=== PATIENT | male | born 1975 | race Caucasian/White ===

== ENCOUNTER → 2018-11-15 09:13 | Outpatient (CLI) | payer OTHER, SELFPAY ==
--- NOTE | 2018-11-15 09:19 | DI.RAD.S_ITS ---
PROCEDURE: XR HAND RT MIN 3V INDICATIONS: right hand pain/swelling-hit door TECHNIQUE: 3 views of the hand(s) acquired. COMPARISON: None. FINDINGS: Bones: Comminuted, mildly displaced intra-articular fracture is present at the base of the fifth metacarpal. Soft tissues: No suspicious soft tissue calcifications. Soft tissue edema is present adjacent to the fifth digit. IMPRESSION: Comminuted intra-articular fifth metacarpal fracture. Dictated by: Miroslava Whatley M.D. on 11/15/2018 at 9:33 Approved by: Miroslava Whatley M.D. on 11/15/2018 at 9:34
== END ==
LOC: DI 09:18
PROVIDERS: Visit Provider Physician Assistant
DX: M79.641 Pain in right hand (principal); S62.316A Displaced fracture of base of fifth metacarpal bone, right hand, initial encounter for closed fracture; W22.8XXA Striking against or struck by other objects, initial encounter
CPT/HCPCS: 73130

== ENCOUNTER 2019-02-27 10:14 | Emergency (ER) | payer SELFPAY ==
[2019-02-27 10:42] VITALS: BP 150/88; PULSE 102; RESP 14; TEMP 36.8; O2SAT 97; BMI 28.1
--- NOTE | 2019-02-27 11:19 | DI.RAD.S_ITS ---
PROCEDURE: XR FINGER LT MIN 2V INDICATIONS: finger pain and laceration, smashed TECHNIQUE: 3 views of the left 4th digit acquired. COMPARISON: None. FINDINGS: Bones: There is a mildly comminuted fracture of the tuft of the 4th distal phalanx. No dislocations. Soft tissues: There is soft tissue swelling of the 4th digit distally. No radiopaque foreign bodies. IMPRESSION: 1. Mildly comminuted fracture of the 4th distal phalanx. Dictated by: Arash Sagastume M.D. on 02/27/2019 at 10:57 Approved by: Arash Sagastume M.D. on 02/27/2019 at 10:59
--- NOTE | 2019-02-27 11:19 | DI.RAD.S_ITS ---
PROCEDURE: XR RIBS LT MIN 3V W CXR1V INDICATIONS: L side ribs pain, s/p fall 2 days ago on ribs TECHNIQUE: 2 views of the left ribs were acquired, along with a single view chest. COMPARISON: None. FINDINGS: Surgical changes and devices: None. Bones and chest wall: No displaced rib fracture identified. No suspicious bony lesions. Overlying soft tissues appear unremarkable. Lungs and pleura: No pleural effusions or pneumothorax. Lungs appear clear. Mediastinum: Mediastinal contours appear normal. Heart size is normal. IMPRESSION: 1. No displaced rib fracture identified. Dictated by: Arash Sagastume M.D. on 02/27/2019 at 10:55 Approved by: Arash Sagastuem M.D. on 02/27/2019 at 10:56
[2019-02-27] MEDS: BACITRACIN OINT 0.9 GM PCKT 1 APPLIC TOP (11:38)
[2019-02-27] MEDS: LIDO 1%/SOD BICARB 8.4% (10ML) 10 ML SYRINGE INJ (11:38)
[2019-02-27] MEDS: TET,DIPH,PERTUSS(ACELL),VAC/PF 0.5 ML SYRINGE IM (11:39)
--- NOTE | 2019-02-27 12:20 | ED_ITS ---
HPI - Fall <SAÚL DaughertyP - Last Filed: 02/28/19 01:24> General Chief Complaint: Fall Stated Complaint: Laceration on left finger from fall Time Seen by Provider: 02/27/19 11:01 Source: patient Mode of arrival: Ambulatory Limitations: no limitations History of Present Illness HPI Narrative: This is a very anxious 43-year-old male, smoker, who presents to ED with severe left 4th digit cut to distal finger 2 days ago after he smashed on metal of door locking parts which is not too clear per patient's description. He states pain is very severe and is causing nausea. Patient denies fever, chills, vomiting, drainage from the wound. Patient also states he had mechanical fall on the same day on to his left chest and has been hurting. He states hurts to cough or movement. Patient denies dyspnea or productive cough. Last tetanus immunization was given in 2008. Related Data Home Medications Medication Instructions Recorded Confirmed cetirizine 10 mg capsule 10 mg PO DAILY 12/24/17 11/15/18 multivitamin 1 tab PO DAILY 12/24/17 11/15/18 Previous Rx's Medication Instructions Recorded fluticasone propionate 1 spray INTRANASAL HS #16 gm 08/04/16 ipratropium 20 mcg-albuterol 100 1 puff INHALATION QID #4 gram 12/24/17 mcg/actuation mist for inhalation cephalexin [Keflex] 500 mg PO Q6H 10 Days #40 cap 02/27/19 Allergies Allergy/AdvReac Type Severity Reaction Status Date / Time No Known Drug Allergies Allergy Verified 02/27/19 10:42 Review of Systems <SAÚL DaughertyP - Last Filed: 02/28/19 01:24> Review of Systems Narrative: General: See HPI HEENT: Denies sinus pain, ear pain, sore throat, difficulty swallowing, dizziness. Respiratory: Denies dyspnea, cough, wheezing, hemoptysis, sputum. Cardiovascular: Left-sided rib pain. Denies chest pain, palpitations, orthopnea, edema. Gastrointestinal: Reports nausea. Denies vomiting, abdominal pain, diarrhea, constipation, melena. : Denies dysuria, frequency, incontinence, hematuria, urinary retention. Musculoskeletal: Denies weakness, joint pain or bony pain. Skin: See HPI Neurologic: Denies weakness, headache, numbness, change in speech, confusion, seizures, incoordination. Psychiatric: No concerning psychosocial issues. 12-point review of systems is negative except for those stated above. Exam <Lazaro BERT Bowser - Last Filed: 02/28/19 01:24> Narrative Exam Narrative: GEN: Alert, oriented x 3, apprehensive and restless. Head: Normal cephalic, atraumatic. No scalp or temporal tenderness, palpable mass or rash. EYES: Pupils are equal, round, and reactive to light and accommodation. Extraocular muscles are intact bilaterally. There is no subconjunctival hemorrhage, exudate and sclera non-icteric. ENT: Bilateral auditory canals and tympanic membranes clear. Hearing grossly i ntact. Nose without bleeding, purulent discharge or deviation. Mucous membrane moist, no mucosal lesion. Throat without erythema, tonsillar hypertrophy or exudate. Uvula in midline, airway patent. Neck: Trachea in midline. No JVD, non-tender without lymphadenopathy. No masses or thyroid megaly. Supple, non-tender and no meningeal signs. CARDIAC: Normal regular rate and rhythm without murmurs, gallops, or rubs. No chest wall tenderness. No peripheral edema, cyanosis or pallor. Capillary refill is less than 2 seconds. RESPIRATORY: Lungs are cleat to auscultate bilaterally. No cough, wheezes, rales, or rhonchi. No stridor, respiratory distress, increase work of breathing, or accessary muscle used. ABD: Left upper abdomen with superficial abrasion and mildly tender to palpate. Abdomen soft and non-distended. No guarding or rebound tenderness to palpate. Bowel sounds are normal in all 4 quadrants. There is no palpable masses or organomegaly. EXT: Reports left 4th distal finger pain to palpate. Full range of motion on affected finger against resistance, no loss of sensation, strength. SKIN: Left 4th distal finger injury very tightly wrapped around Band-Aid, noticed swelling and warmth to touch down to proximal finger. Bilateral hands and lower arm covered with blue ink. BACK: Left posterior rib and side tender to palpate without deformity or crep itance. No flank tenderness. NEUROLOGICAL: Alert and oriented to place, time and person. Sensation and motor function intact bilaterally. No facial droops, dysphasia. PSYCHIATRIC: Patient anxious but was able to redirect. No hallucinations and is not suicidal. Initial Vital Signs Initial Vital Signs: Vital Signs Temperature 98.3 F 02/27/19 10:42 Pulse Rate 102 H 02/27/19 10:42 Respiratory Rate 14 02/27/19 10:42 Blood Pressure 150/88 H 02/27/19 10:42 Pulse Oximetry 97 02/27/19 10:42 <Viridiana Rodgers DO - Last Filed: 02/28/19 07:45> Initial Vital Signs Initial Vital Signs: Vital Signs Temperature 98.3 F 02/27/19 10:42 Pulse Rate 102 H 02/27/19 10:42 Respiratory Rate 14 02/27/19 10:42 Blood Pressure 150/88 H 02/27/19 10:42 Pulse Oximetry 97 02/27/19 10:42 PFSH <BERT Daugherty - Last Filed: 02/28/19 01:24> Surgical History H/O hand surgery (Acute) Social History Smoking Status: Never smoker Social History Smoking Status: Current every day smoker Procedures <BERT Daugherty - Last Filed: 02/28/19 01:24> Nerve Block Nerve Block 1: Time out performed: Yes Local Anesthetic: lidocaine 1% and with bicarb Amount of anesthesia used (mL): 1.5 Side: left Nerve Blocks: digital (Fourth finger) Procedure Successful: Yes Patient Tolerated Procedure: Well Complications: none Orthopedic Splinting/Casting Injury #1: Side: left Upper Extremity Injury Location: finger (Fourth) Upper Extremity Immobilizer: aluminum form splint Post splinting neuro exam: intact Post splinting vascular exam: intact Placed by: Nursing Scores <BERT Daugherty - Last Filed: 02/28/19 01:24> GCS [place] coma scale eye opening: Spontaneous [place] coma scale verbal response: Orientated [place] coma scale motor response: Obey commands [place] coma scale total score: 15 Course <BERT Daugherty - Last Filed: 02/28/19 01:24> Orders Ordered: Discontinued Medications Bacitracin (Bacitracin) 1 applic TOP NOW ONE Stop: 02/27/19 11:20 Last Admin: 02/27/19 11:38 Dose: 1 applic Documented by: DANGELO Cephalexin HCl (Keflex) 500 mg PO NOW ONE Stop: 02/27/19 13:10 Last Admin: 02/27/19 13:17 Dose: 500 mg Documented by: DANGELO Diphtheria/Tetanus/Acell Pertussis (Adacel) 0.5 ml IM .ONCE ONE Stop: 02/27/19 11:22 Last Admin: 02/27/19 11:39 Dose: 0.5 ml Documented by: DANGELO Lidocaine/Sodium Bicarbonate (Buffered Lidocaine 10 Ml Syr) 10 ml INJ NOW ONE Stop: 02/27/19 11:20 Last Admin: 02/27/19 11:38 Dose: 10 ml Documented by: DANGELO Vital Signs Vital signs: Vital Signs - 8 hr 02/27/19 10:42 Temperature 98.3 F Pulse Rate 102 H Respiratory Rate 14 Blood Pressure 150/88 H Pulse Oximetry 97 <Viridiana Rodgers DO - Last Filed: 02/28/19 07:45> Orders Ordered: Discontinued Medications Bacitracin (Bacitracin) 1 applic TOP NOW ONE Stop: 02/27/19 11:20 Last Admin: 02/27/19 11:38 Dose: 1 applic Documented by: DANGELO Cephalexin HCl (Keflex) 500 mg PO NOW ONE Stop: 02/27/19 13:10 Last Admin: 02/27/19 13:17 Dose: 500 mg Documented by: DANGELO Diphtheria/Tetanus/Acell Pertussis (Adacel) 0.5 ml IM .ONCE ONE Stop: 02/27/19 11:22 Last Admin: 02/27/19 11:39 Dose: 0.5 ml Documented by: DANGELO Lidocaine/Sodium Bicarbonate (Buffered Lidocaine 10 Ml Syr) 10 ml INJ NOW ONE Stop: 02/27/19 11:20 Last Admin: 02/27/19 11:38 Dose: 10 ml Documented by: DANGELO Vital Signs Vital signs: Vital Signs - 8 hr 02/27/19 10:42 Temperature 98.3 F Pulse Rate 102 H Respiratory Rate 14 Blood Pressure 150/88 H Pulse Oximetry 97 MDM - Fall <Lazaro BERT Bowser - Last Filed: 02/28/19 01:24> Differential Diagnosis Differential diagnosis: Likely other (Chest contusion, rib fracture, finger laceration, finger fracture, finger contusion) Medical Records Attestation: I reviewed the patient's medical records. Imaging Data XR-Finger LT: Radiologist's impression: [address] [address] XRay Report Signed Patient: Ahmet Chavez LMR#: [id number] : 1975Acct:[id number] Age/Sex: 43 / MDate of Service: 02/27/19 Loc: ED Accession Number: [id number] Procedure: XR finger LT min 2V Ordering Provider: Lazaro BowserP PROCEDURE: XR FINGER LT MIN 2V INDICATIONS: finger pain and laceration, smashed TECHNIQUE: 3 views of the left 4th digit acquired. COMPARISON: None. FINDINGS: Bones: There is a mildly comminuted fracture of the tuft of the 4th distal phalanx. No dislocations. Soft tissues: There is soft tissue swelling of the 4th digit distally. No radiopaque foreign bodies. IMPRESSION: 1. Mildly comminuted fracture of the 4th distal phalanx. Dictated by: Arash Sagastume M.D. on 02/27/2019 at 10:57 Approved by: Arash Sagastume M.D. on 02/27/2019 at 10:59 Chest x-ray: Radiologist's impression: [address] [address] XRay Report Signed Patient: Ahmet Chavez LMR#: [id number] : 1975Acct:[id number] Age/Sex: 43 / MDate of Service: 02/27/19 Loc: ED Accession Number: [id number] Procedure: XR ribs LT min 3V w CXR1V Ordering Provider: Lazaro Bowser [facility] PROCEDURE: XR RIBS LT MIN 3V W CXR1V INDICATIONS: L side ribs pain, s/p fall 2 days ago on ribs TECHNIQUE: 2 views of the left ribs were acquired, along with a single view chest. COMPARISON: None. FINDINGS: Surgical changes and devices: None. Bones and chest wall: No displaced rib fracture identified. No suspicious bony lesions. Overlying soft tissues appear unremarkable. Lungs and pleura: No pleural effusions or pneumothorax. Lungs appear clear. Mediastinum: Mediastinal contours appear normal. Heart size is normal. IMPRESSION: 1. No displaced rib fracture identified. Dictated by: Arash Sagastume M.D. on 02/27/2019 at 10:55 Approved by: Arash Sagastume M.D. on 02/27/2019 at 10:56 [facility] Narrative Medical decision making narrative: This is a 43-year-old gentleman who came in to ED with left 4th distal finger pain and laceration after he injured 2 days ago. He also reports mechanical fall on the left side his ribs and chest on the same day and reports pain with movement and coughing. Chest/rib x-ray was obtained with negative findings of fracture. After very tight Band-Aid dressing was removed from affected finger patient reports improved discomfort. Affected finger was anesthetized by a nerve block. Please see procedural note. Patient is soak affected finger and Hibiclens water for prolonged period. Wound care was done by bacitracin and Xeroform and loose to below gauze. X-ray test shows patient had comminuted fracture of the 4th distal phalanx. Patient was medicated with Keflex 500 mg while in ED and was discharged with remaining 10 day course q.i.d. dose. Patient was updated Tdap today. Aluminum finger splint was applied on affected finger. Patient does not have primary care physician at this time and [facility] phone number has been provided along the walk-in clinic information and along the [facility] contact information for patient to follow up as needed. Patient advised to recheck his wound in couple of days after he started antibiotic medication. Patient agrees with treatment plan and no further questions were expressed and work note for 3 days have been provided. Discharge Plan Departure Patient Disposition: Home Clinical Impression: Pain in rib Finger fracture, left Qualifiers: Encounter type: initial encounter Finger: ring finger Fracture type: closed Phalanx: distal Fracture alignment: nondisplaced Qualified Code(s): S62.665A - Nondisplaced fracture of distal phalanx of left ring finger, initial encounter for closed fracture Discharge Date/Time: 02/27/19 13:58 Instructions: DI for Finger Fracture, DI for Rib Contusion Activity Restrictions/Additional Instructions: You have been diagnosed with [ L side rib contusion from a fall, mild comminuted fracture of the 4th distal finger and swelling, cellulitis ]. What to do: *Take your medications as directed. Please continue to take Keflex 4 times a day for next 10 days. You can take [id number] Tylenol and or Motrin as needed for discomfort. You can take 4000 mg of tylenol in 24 hr period and 400- 600 mg Motrin TID with food. Please elevate left hand above you're chest level during rest to decrease the swelling. Please keep you're dressing clean and dry and do not soak affected hand in water, tub, swimming pool. Use the splint to protect tip of you're finger with a fracture. *Follow up with your primary care provider and orthopedic doctor in 2-3 days, call for an appointment. Let them know you were seen in the ED and that we asked you to be seen in follow up. *Return to ED if you have any new, worsening, or concerning symptoms, such as [chest pain, breathing difficulty, fever, unable to tolerate fluids, increasing pain/swelling/redness/warmth, pus-like discharge, or any acute concerns]. Prescriptions: New cephalexin [Keflex] 500 mg capsule 500 mg PO Q6H 10 Days Qty: 40 RF: 0 No Action cetirizine [Zyrtec] 10 mg capsule 10 mg PO DAILY RF: 0 multivitamin tablet 1 tab PO DAILY RF: 0 ipratropium-albuterol [Combivent Respimat] 20-100 mcg/actuation mist 1 puff INHALATION QID Qty: 4 RF: 0 fluticasone propionate 16 GM spray,suspension 1 spray Intranasal HS Qty: 16 RF: 1 Referrals: [facility] [Outside] [facility] [Outside] Stand Alone Forms: Work Release Note
[2019-02-27] MEDS: cephALEXin 250 MG CAPSULE 500 MG PO (13:17)
[2019-02-27 13:57] VITALS: BP 125/65; PULSE 90; RESP 16; O2SAT 97
== END 2019-02-27 13:58 | disposition home or self-care (01) ==
PROVIDERS: Emergency Provider Nurse Practitioner Family
DX: R07.81 Pleurodynia (principal); S62.665A Nondisplaced fracture of distal phalanx of left ring finger, initial encounter for closed fracture; W19.XXXA Unspecified fall, initial encounter; Z23 Encounter for immunization
CPT/HCPCS: 64450; 71101; 73140; 90471; 99283; 90715